=== PATIENT | male | born 1965 | race Two or more races ===

== ENCOUNTER 2018-09-10 17:07 | Emergency (ER) | payer SELFPAY ==
[~2018-09-10] VITALS: Ht 167.6 cm; Wt 104.3 kg
[2018-09-10 17:42] LABS: Basophils # (auto) 0.1 uL; Basophils % (auto) 0.6 % (0.0-2.0); Eosinophils # (auto) 0.2 uL; Eosinophils % (auto) 1.9 % (0.0-7.0); Hematocrit 45.9 % (41.0-53.0); Hemoglobin 15.2 g/dL (13.5-17.5); Lymphocytes # (auto) 2.7 uL; Lymphocytes % (auto) 24.4 % (10.0-50.0); Mean Corpuscular Hemoglobin 29.2 pg (28.0-32.0); Mean Corpuscular Hgb Conc. 33.3 g/dL (32.0-36.0); Mean Corpuscular Volume 87.7 fL (80.0-100.0); Monocytes # (auto) 0.9 uL; Monocytes % (auto) 7.8 % (0.0-12.0); Neutrophils # (auto) 7.3 uL; Neutrophils % (auto) 65.3 % (37.0-80.0); Nucleated Red Blood Cells % 0.1 %; Platelet Count (auto) 254 10^3/uL (140-450); Red Blood Cells 5.23 10^6/uL (4.5-5.90); White Blood Cell 11.2 10^3/uL (4.4-10.8)
[2018-09-10 18:00] LABS: Alanine Aminotransferase 50 U/L (16-61); Albumin 3.6 g/dL (3.4-5.0); Amylase 94 U/L (25-115); Anion Gap 10 (5-15); Aspartate Aminotransferase 38 U/L (15-37); BUN/Creatinine Ratio 10.6; Blood Urea Nitrogen 15 mg/dL (7-18); Calcium 9.2 mg/dL (8.5-10.1); Carbon Dioxide 22 mmol/L (21-32); Chloride 106 mmol/L (98-107); GFR African American 68 mL/min; GFR Non-African American 56 mL/min; Glucose 111 mg/dL (74-106); Lipase 228 U/L (73-393); Magnesium 2.1 mg/dL (1.6-2.6); Potassium 3.9 mmol/L (3.5-5.1); Sodium 138 mmol/L (136-145)
[2018-09-10 18:05] LABS: Alkaline Phosphatase 80 U/L (45-117); Bilirubin, Total 0.4 mg/dL (0.2-1.0); Total Protein 8.1 g/dL (6.4-8.2)
[2018-09-10] MEDS ORDERED: SODIUM CHLORIDE 0.9% 1,000 ML IV ONE (18:30)
[2018-09-10] MEDS ORDERED: KETOROLAC TROMETH 30 MG/ML 1ML VIAL IV ONE (18:30)
[2018-09-10 20:27] LABS: Urine Bacteria FEW /hpf (None Seen); Urine Blood Negative /uL (Negative); Urine Specific Gravity 1.017 (1.001-1.035); Urine WBC <1 /hpf (0 - 3)
[2018-09-10 20:29] LABS: Alcohol, Urine < 3.0 mg/dL (0-5); Amphetamine Screen, Urine POSITIVE (NEGATIVE); Barbiturate Scree,Urine NEGATIVE (NEGATIVE); Benzodiazephine Screen, Urine NEGATIVE (NEGATIVE); Cannabinoid Screen, Urine NEGATIVE (NEGATIVE); Cocaine Screen, Urine NEGATIVE (NEGATIVE); Opiate Scree,Urine NEGATIVE (NEGATIVE); Phencyclidine Screen, Urine NEGATIVE (NEGATIVE)
[2018-09-10 21:50] VITALS: BP 150/90
== END 2018-09-10 22:02 | disposition home or self-care (01) ==
LOC: ER 17:13
DX: N21.0 Calculus in bladder (principal); N13.30 Unspecified hydronephrosis; N13.4 Hydroureter
CPT/HCPCS: 36415; 74176; 80053; 80307; 81001; 82150; 83690; 83735; 84484; 85025; 93005; 96374; 99284; J1885; J7030